=== PATIENT | female | born 1960 ===

== ENCOUNTER 2018-08-08 16:25 | Observation (INO) | payer MEDICAID ==
[2018-08-08] MEDS ORDERED: Sodium Chloride 0.9% 1,000 ML IV SCH (16:45)
--- NOTE | 2018-08-08 16:49 | ED PDOC ---
HPI:STROKE - Time Time: 16:44 - Historian Historian: Patient, Family - Chief Complaint Chief Complaint: Numbness - Onset Date: 08/07/18 Time: 10:00 - Timing Timing: Currently Symptomatic - TPA Positive for Contraindication: Yes Reason tPA is not being Administered: out of window and nih 0 - Notes: Notes:: Pt. with left arm and leg numbness. Also numbness to left side of her lips. No tongue or rest of the face issues. No vision changes, dizziness, neck pain, weakness. No chest pain, dyspnea, abd pain, nausea, vomit. Has headache to the right back of the head, mild, not the worst of her life. Symptoms present when she woke up. Yesterday evening pt. had no issues. NIHSS Stroke Scale - Date/Time Evaluation Performed Date Performed: 08/08/18 Time Performed: 16:45 When Was NIHSS Performed: Baseline - How Severe is the Stroke Level of Consciousness: 0=Alert LOC to Questions: 0=Both comments correct LOC to commands: 0=Obeys both correctly Best Gaze: 0=Normal Visual: 0=No visual loss Facial: 0=Normal Motor Arm - Left: 0=No drift Motor Arm - Right: 0=No drift Motor Leg - Left: 0=No drift Motor Leg - Right: 0=No drift Limb Ataxia: 0=Absent Sensory: 0=Normal Best Language: 0=No aphasia Dysarthia: 0=Normal articulation Extinction & Inattention (Neglect): 0=Normal, no object Score: 0 rTPA Inclusion/Exclusion - Refusal of Treatment Patient Refused Treatment: No - Inclusion Criteria for Altepase Patient is 18 years or Older: Yes The Clinical Diagnosis of Ischemic Stroke That is Causing a Potentially Disabling Neurological Deficit: No Time of Onset is Well Established to be Less Than 270 Minute Before Treatment Would Begin: No Risk/Benefit Discussed With Patient/Family Member Present: No Past Medical History Reviewed: Nursing Documentation, Vital Signs Vital Signs: Last Vital Signs Temp 97.8 F 08/08/18 16:35 Pulse 86 08/08/18 16:35 Resp 18 08/08/18 16:35 BP 160/78 H 08/08/18 16:35 Pulse Ox 100 08/08/18 16:35 - Medical History PMH: No Chronic Diseases - Surgical History Surgical History: Appendectomy - Family History Family History: States: Unknown Family Hx - Home Medications Home Medications: Ambulatory Orders Medication Instructions Recorded Cyclobenzaprine [Cyclobenzaprine 10 mg PO TID PRN #15 tab 05/22/17 HCl] Ibuprofen [Motrin Tab] 400 mg PO TID PRN #30 tab 05/22/17 - Allergies Allergies/Adverse Reactions: Allergies Allergy/AdvReac Type Severity Reaction Status Date / Time No Known Allergies Allergy Verified 08/08/18 16:35 Review of Systems ROS Statement: Except As Marked, All Systems Reviewed And Found Negative Neurological: Positive for: Numbness Physical Exam - Reviewed Nursing Documentation Reviewed: Yes Vital Signs Reviewed: Yes - Physical Exam Appears: Positive for: Non-toxic, No Acute Distress Head Exam: Positive for: ATRAUMATIC, NORMAL INSPECTION, NORMOCEPHALIC Skin: Positive for: Normal Color, Warm, DRY Eye Exam: Positive for: EOMI, Normal appearance, PERRL ENT: Positive for: Normal ENT Inspection Neck: Positive for: Normal, Painless ROM Cardiovascular/Chest: Positive for: Regular Rate, Rhythm Respiratory: Positive for: CNT, Normal Breath Sounds Gastrointestinal/Abdominal: Positive for: Normal Exam, Soft. Negative for: Tenderness Back: Positive for: Normal Inspection. Negative for: L CVA Tenderness, R CVA Tenderness Extremity: Positive for: Normal ROM. Negative for: Tenderness, Pedal Edema Neurologic/Psych: Positive for: Alert, loan coordinator II-XII, Oriented. Negative for: Motor/Sensory Deficits, Facial Droop - Laboratory Results Result Diagrams: 08/08/18 17:00 08/08/18 17:00 Interpretation Of Abn Labs: no acute - ECG O2 Sat by Pulse Oximetry: 100 - Radiology X-Ray: Read By Radiologist X-Ray Interpretation: No Acute Disease - CT Scan/US ct Other Rad Studies (CT/US): Read By Radiologist Other Rad Interpretation: no acute - Progress ED Course And Treament: 749: Pt. stable. Symptoms gone. Spoke with Dr. Seman. Ravin quintero for further evaluation. Disposition - Clinical Impression Clinical Impression: Paresthesia - Patient ED Disposition Is Patient to be Admitted: Yes Counseled Patient/Family Regarding: Studies Performed, Diagnosis - Disposition Disposition Time: 19:50 Condition: FAIR - Pt Status Changed To: Hospital Disposition Of: Observation - POA Present On Arrival: None
--- NOTE | 2018-08-08 16:59 | CT ---
Date of service: 08/08/2018 PROCEDURE: CT HEAD WITHOUT CONTRAST. HISTORY: code stroke COMPARISON: None available. TECHNIQUE: Axial computed tomography images were obtained through the head/brain without intravenous contrast. Radiation dose: Total exam DLP = 761.56 mGy-cm. This CT exam was performed using one or more of the following dose reduction techniques: Automated exposure control, adjustment of the mA and/or kV according to patient size, and/or use of iterative reconstruction technique. FINDINGS: HEMORRHAGE: No intracranial hemorrhage. BRAIN: No mass effect or edema. No atrophy or chronic microvascular ischemic changes. VENTRICLES: Unremarkable. No hydrocephalus. CALVARIUM: Unremarkable. PARANASAL SINUSES: Mucosal thickening noted in the left ethmoid sinuses. MASTOID AIR CELLS: Unremarkable as visualized. No inflammatory changes. OTHER FINDINGS: None. IMPRESSION: No evidence of acute intracranial hemorrhage mass effect or midline shift. No CT evidence of acute territorial infarction.
[2018-08-08 17:14] LABS: BASO % 0.6 % (0.0-2.0); EOS % 0.5 % (0.0-4.0); HEMOGLOBIN 14.4 g/dL (12.0-16.0); LYMPH # 2.7 K/uL (1.0-4.3); LYMPH % 39.4 % (20.0-40.0); MEAN CELL VOLUME 88.1 fl (81.0-99.0); MEAN CORPUSCULAR HEMOGLOBIN 30.9 pg (27.0-31.0); MEAN CORPUSCULAR HGB CONC 35.1 g/dL (33.0-37.0); MEAN PLATELET VOLUME 7.8 fl (7.2-11.7); MONO # 0.5 K/uL (0.0-0.8); MONO % 6.6 % (0.0-10.0); NEUT # 3.7 K/uL (1.8-7.0); NEUT % 52.9 % (50.0-75.0); RBC 4.67 Mil/uL (3.80-5.20); RED CELL DISTRIBUTION WIDTH 12.4 % (11.5-14.5); WHITE BLOOD COUNT 6.9 K/uL (4.8-10.8)
[2018-08-08 17:19] LABS: PROTHROMBIN TIME 10.9 Seconds (9.8-13.1)
[2018-08-08 17:22] LABS: PARTIAL THROMBOPLASTIN TIME 28.3 Seconds (25.6-37.1)
[2018-08-08 17:29] LABS: ALB/GLOB RATIO 1.2 (1.0-2.1); ALBUMIN 4.8 g/dL (3.5-5.0); ALT/SGPT 49 U/L (9-52); AST/SGOT 33 U/L (14-36); BLOOD UREA NITROGEN 13 mg/dl (7-17); CALCIUM 10.1 mg/dL (8.4-10.2); GFR NON-AFRICAN AMERICAN > 60; HDL CHOLESTEROL 51 MG/DL (30-70)
[2018-08-08 17:39] LABS: LDL CHOLESTEROL 174 mg/dL (0-129)
--- NOTE | 2018-08-08 17:51 | RAD ---
Date of service: 08/08/2018 HISTORY: Code Stroke COMPARISON: No prior. FINDINGS: LUNGS: No active pulmonary disease. PLEURA: No significant pleural effusion identified, no pneumothorax apparent. CARDIOVASCULAR: No atherosclerotic calcification present No radiographic findings to suggest acute or significant cardiovascular disease. OSSEOUS STRUCTURES: No significant abnormalities. VISUALIZED UPPER ABDOMEN: Normal. OTHER FINDINGS: None. IMPRESSION: No active disease.
[2018-08-09 04:36] VITALS: O2SAT 100
[2018-08-09 07:18] LABS: HEMOGLOBIN 13.4 g/dL (12.0-16.0); MEAN CELL VOLUME 88.3 fl (81.0-99.0); MEAN CORPUSCULAR HEMOGLOBIN 30.6 pg (27.0-31.0); MEAN CORPUSCULAR HGB CONC 34.7 g/dL (33.0-37.0); RBC 4.38 Mil/uL (3.80-5.20); RED CELL DISTRIBUTION WIDTH 12.5 % (11.5-14.5); WHITE BLOOD COUNT 5.9 K/uL (4.8-10.8)
--- NOTE | 2018-08-09 07:36 | CP.PCM.HP ---
Past Patient History - Past Medical History & Family History Past Medical History?: Yes - Past Social History Smoking Status: Never Smoked - CARDIAC Hx Cardiac Disorders: No - PULMONARY Hx Respiratory Disorders: No - NEUROLOGICAL Hx Neurological Disorder: No - HEENT Hx HEENT Problems: No - RENAL Hx Chronic Kidney Disease: No - ENDOCRINE/METABOLIC Hx Endocrine Disorders: No - HEMATOLOGICAL/ONCOLOGICAL Hx Blood Disorders: No - INTEGUMENTARY Hx Dermatological Problems: No - MUSCULOSKELETAL/RHEUMATOLOGICAL Hx Musculoskeletal Disorders: No Hx Falls: No - GASTROINTESTINAL Hx Gastrointestinal Disorders: No - GENITOURINARY/GYNECOLOGICAL Hx Genitourinary Disorders: No - PSYCHIATRIC Hx Psychophysiologic Disorder: No Hx Substance Use: No - SURGICAL HISTORY Hx Appendectomy: Yes - ANESTHESIA Hx Anesthesia: Yes Hx Anesthesia Reactions: No Meds Allergies/Adverse Reactions: Allergies Allergy/AdvReac Type Severity Reaction Status Date / Time No Known Allergies Allergy Verified 08/08/18 16:35 Results - Vital Signs Recent Vital Signs: Last Vital Signs Temp 98.7 F 08/09/18 04:36 Pulse 70 08/09/18 04:36 Resp 18 08/09/18 04:36 BP 104/65 08/09/18 04:36 Pulse Ox 100 08/09/18 04:36 - Labs Result Diagrams: 08/09/18 05:40 08/08/18 17:00 Labs: Laboratory Results - last 24 hr 08/08/18 08/08/18 08/08/18 16:41 17:00 17:00 WBC 6.9 D RBC 4.67 Hgb 14.4 Hct 41.1 MCV 88.1 MCH 30.9 MCHC 35.1 RDW 12.4 Plt Count 225 MPV 7.8 Neut % (Auto) 52.9 Lymph % (Auto) 39.4 Pratt % (Auto) 6.6 Eos % (Auto) 0.5 Baso % (Auto) 0.6 Neut # (Auto) 3.7 Lymph # (Auto) 2.7 Pratt # (Auto) 0.5 Eos # (Auto) 0.0 Baso # (Auto) 0.0 PT INR APTT Sodium 141 Potassium 4.0 Chloride 105 Carbon Dioxide 24 Anion Gap 16 BUN 13 Creatinine 0.8 Est GFR ( Amer) > 60 Est GFR (Non-Af Amer) > 60 POC Glucose (mg/dL) 118 H Random Glucose 119 H Calcium 10.1 Total Bilirubin 0.9 AST 33 ALT 49 Alkaline Phosphatase 84 Troponin I < 0.0120 Total Protein 8.7 H Albumin 4.8 Globulin 3.9 Albumin/Globulin Ratio 1.2 Triglycerides 183 H Cholesterol 257 H LDL Cholesterol Direct 174 H HDL Cholesterol 51 Blood Type Antibody Screen BBK History Checked 08/08/18 08/08/18 08/09/18 17:00 17:00 05:40 WBC 5.9 RBC 4.38 Hgb 13.4 Hct 38.7 MCV 88.3 MCH 30.6 MCHC 34.7 RDW 12.5 Plt Count 217 MPV Neut % (Auto) Lymph % (Auto) Pratt % (Auto) Eos % (Auto) Baso % (Auto) Neut # (Auto) Lymph # (Auto) Pratt # (Auto) Eos # (Auto) Baso # (Auto) PT 10.9 INR 1.0 APTT 28.3 Sodium Potassium Chloride Carbon Dioxide Anion Gap BUN Creatinine Est GFR ( Amer) Est GFR (Non-Af Amer) POC Glucose (mg/dL) Random Glucose Calcium Total Bilirubin AST ALT Alkaline Phosphatase Troponin I Total Protein Albumin Globulin Albumin/Globulin Ratio Triglycerides Cholesterol LDL Cholesterol Direct HDL Cholesterol Blood Type B POSITIVE Antibody Screen Negative BBK History Checked No verified bt
[2018-08-09 07:44] LABS: BLOOD UREA NITROGEN 13 mg/dl (7-17); CALCIUM 9.2 mg/dL (8.4-10.2); GFR NON-AFRICAN AMERICAN > 60
[2018-08-09] MEDS ORDERED: Enoxaparin 40 mg Syringe SC SCH (09:00)
--- NOTE | 2018-08-09 13:41 | MRI ---
Date of service: 08/09/2018 PROCEDURE: MRI BRAIN WITHOUT CONTRAST HISTORY: Paresthesia COMPARISON: Noncontrast head CT from 08/08/2018. TECHNIQUE: Multiplanar, multisequence MR images of the brain were obtained without intravenous contrast enhancement. FINDINGS: HEMORRHAGE: None DWI: No evidence of an acute or early subacute infarction. BRAIN PARENCHYMA: Harvey-white matter differentiation is preserved. There is no mass, mass effect or abnormal extra-axial fluid collection. There is no territorial infarction. The midline sagittal structures are normal. VENTRICLES: There is mild age-related global parenchymal volume loss and proportionate enlargement of the ventricles and cortical sulci. CRANIUM: There is normal bone marrow signal pattern. ORBITS: Grossly unremarkable. PARANASAL SINUSES/MASTOIDS: There is moderate mucosal thickening in the left posterior ethmoid air cells. The remaining included paranasal sinuses are clear. The mastoid air cells are clear. VASCULAR SYSTEM: There are normal signal voids in the larger intracranial arteries. OTHER FINDINGS: None. IMPRESSION: No acute intracranial abnormality.
[2018-08-09 15:52] VITALS: BP 108/70; PULSE 91; RESP 17; TEMP 98.3
--- NOTE | 2018-08-09 17:04 | CARD ---
APPROVED REPORT Date of service: 08/09/2018 EXAM: Two-dimensional and M-mode echocardiogram with Doppler and color Doppler. Other Information Quality : GoodRhythm : NSR INDICATION Parasthesis 2D DIMENSIONS IVSd0.83 (0.7-1.1cm)LVDd3.58 (3.9-5.9cm) LVOT Diameter1.97 (1.8-2.4cm)PWd0.82 (0.7-1.1cm) IVSs1.04 (0.8-1.2cm)LVDs2.44 (2.5-4.0cm) FS (%) 31.7 %PWs1.16 (0.8-1.2cm) M-Mode DIMENSIONS Left Atrium (MM)2.22 (2.5-4.0cm)IVSd0.84 (0.7-1.1cm) Aortic Root2.65 (2.2-3.7cm)LVDd4.35 (4.0-5.6cm) Aortic Cusp Exc.1.94 (1.5-2.0cm)PWd0.84 (0.7-1.1cm) IVSs1.31 cmFS (%) 54 % LVDs1.98 (2.0-3.8cm)PWs1.15 cm Aortic Valve AoV Peak Czfiytvp733.2cm/sAoV VTI21.1cmAO Peak GR.5mmHg LVOT Peak Vnhnqcwx65.5cm/sLVOT VTI18.76cmAO Mean GR.3mmHg EVA (VMAX)1.04et4HXA (VTI)1.71cm2 Mitral Valve MV E Fsoyveur37.3cm/sMV DECEL [id number] A Mgyjmaan20.0cm/s MV OFG53csC/A ratio1.0MVA (PHT)4.91cm2 TDI Lateral E' Peak V13.61cm/sMedial E' Peak V8.72cm/sE/Lateral E'5.2 E/Medial E'8.2 Pulmonary Valve PV Peak Ieezksgt15.6cm/s LEFT VENTRICLE The left ventricle is normal size. There is normal left ventricular wall thickness. The left ventricular systolic function is normal. The estimated ejection fraction is 60-65% No regional wall motion abnormalities noted.. Transmitral Doppler flow pattern is Grade I-abnormal relaxation pattern. No left ventricle thrombus noted on this study. There is no ventricular septal defect visualized. There is no left ventricular aneurysm. There is no mass noted in the left ventricle. RIGHT VENTRICLE The right ventricle is normal size. There is normal right ventricular wall thickness. The right ventricular systolic function is normal. ATRIA The left atrium size is normal. The right atrium size is normal. The interatrial septum is intact with no evidence for an atrial septal defect. AORTIC VALVE The aortic valve is normal in structure. No aortic regurgitation is present. There is no aortic valvular stenosis. There is no aortic valvular vegetation. MITRAL VALVE The mitral valve is normal in structure. There is no evidence of mitral valve prolapse. There is no mitral valve stenosis. There is no mitral valve regurgitation noted. TRICUSPID VALVE The tricuspid valve is normal in structure. There is trace tricuspid valve regurgitation noted. There is no tricuspid valve prolapse or vegetation. There is no tricuspid valve stenosis. PULMONIC VALVE The pulmonary valve is normal in structure. There is no pulmonic valvular regurgitation. There is no pulmonic valvular stenosis. GREAT VESSELS The aortic root is normal in size. The ascending aorta is normal in size. The pulmonary artery is normal. The IVC is normal in size and collapses >50% with inspiration. PERICARDIAL EFFUSION There is no pericardial effusion. There is no pleural effusion. <Conclusion> The estimated ejection fraction is 60-65% Transmitral Doppler flow pattern is Grade I-abnormal relaxation pattern. The left atrium size is normal. There is trace tricuspid valve regurgitation noted. The interatrial septum is intact with no evidence for an atrial septal defect.
--- NOTE | 2018-08-09 19:44 | CP.PCM.CON ---
History of Present Illness - History of Present Illness History of Present Illness: Neurology consult dictated. Patient is not a tpa candidate as she appears to have not had a tia or stroke. NIH stroke scale 0 now. plan; 1. patient may be discharged home Thank you Dr. nino Past Patient History - Past Medical History & Family History Past Medical History?: Yes - Past Social History Smoking Status: Never Smoked - CARDIAC Hx Cardiac Disorders: No - PULMONARY Hx Respiratory Disorders: No - NEUROLOGICAL Hx Neurological Disorder: No - HEENT Hx HEENT Problems: No - RENAL Hx Chronic Kidney Disease: No - ENDOCRINE/METABOLIC Hx Endocrine Disorders: No - HEMATOLOGICAL/ONCOLOGICAL Hx Blood Disorders: No - INTEGUMENTARY Hx Dermatological Problems: No - MUSCULOSKELETAL/RHEUMATOLOGICAL Hx Musculoskeletal Disorders: No Hx Falls: No - GASTROINTESTINAL Hx Gastrointestinal Disorders: No - GENITOURINARY/GYNECOLOGICAL Hx Genitourinary Disorders: No - PSYCHIATRIC Hx Psychophysiologic Disorder: No Hx Substance Use: No - SURGICAL HISTORY Hx Appendectomy: Yes - ANESTHESIA Hx Anesthesia: Yes Hx Anesthesia Reactions: No Meds Home Medications: Home Medication List Medication Instructions Recorded Confirmed Type Aspirin [Ecotrin] 81 mg PO DAILY 30 Days tabec 08/09/18 Rx Atorvastatin [Lipitor] 40 mg PO HS #30 tab 08/09/18 Rx Cyanocobalamin [Vitamin B12 1000 1,000 mcg PO DAILY #30 tab 08/09/18 Rx mcg Tab] Allergies/Adverse Reactions: Allergies Allergy/AdvReac Type Severity Reaction Status Date / Time No Known Allergies Allergy Verified 08/08/18 16:35 Results - Vital Signs Recent Vital Signs: Last Vital Signs Temp 98.3 F 08/09/18 15:52 Pulse 91 H 08/09/18 15:52 Resp 17 08/09/18 15:52 BP 108/70 08/09/18 15:52 Pulse Ox 100 08/09/18 15:52 - Labs Result Diagrams: 08/09/18 05:40 08/09/18 05:40 Labs: Laboratory Results - last 24 hr 08/08/18 08/09/18 08/09/18 19:28 05:40 05:40 WBC 5.9 RBC 4.38 Hgb 13.4 Hct 38.7 MCV 88.3 MCH 30.6 MCHC 34.7 RDW 12.5 Plt Count 217 Sodium 141 Potassium 4.2 Chloride 112 H Carbon Dioxide 23 Anion Gap 10 BUN 13 Creatinine 0.7 Est GFR ( Amer) > 60 Est GFR (Non-Af Amer) > 60 Random Glucose 88 Hemoglobin A1c 5.4 Calcium 9.2 Vitamin B12 319 TSH 3rd Generation 2.46
--- NOTE | 2018-08-10 14:03 | CARD ---
APPROVED REPORT Date of service: 08/08/2018 EKG Measurement Heart [id number] <Conclusion> Normal sinus rhythm Incomplete right bundle branch block Borderline ECG
--- NOTE | 2018-08-11 07:19 | CP.PCM.DIS ---
Provider - Provider Date of Admission: 08/08/18 19:44 Attending physician: Deon Cat MD Time Spent in preparation of Discharge (in minutes): 25 Hospital Course - Lab Results Lab Results: Most Recent Lab Values WBC 5.9 K/uL (4.8-10.8) 08/09/18 05:40 RBC 4.38 Mil/uL (3.80-5.20) 08/09/18 05:40 Hgb 13.4 g/dL (12.0-16.0) 08/09/18 05:40 Hct 38.7 % (34.0-47.0) 08/09/18 05:40 MCV 88.3 fl (81.0-99.0) 08/09/18 05:40 MCH 30.6 pg (27.0-31.0) 08/09/18 05:40 MCHC 34.7 g/dL (33.0-37.0) 08/09/18 05:40 RDW 12.5 % (11.5-14.5) 08/09/18 05:40 Plt Count 217 K/uL (130-400) 08/09/18 05:40 MPV 7.8 fl (7.2-11.7) 08/08/18 17:00 Neut % (Auto) 52.9 % (50.0-75.0) 08/08/18 17:00 Lymph % (Auto) 39.4 % (20.0-40.0) 08/08/18 17:00 [facility] % (Auto) 6.6 % (0.0-10.0) 08/08/18 17:00 Eos % (Auto) 0.5 % (0.0-4.0) 08/08/18 17:00 Baso % (Auto) 0.6 % (0.0-2.0) 08/08/18 17:00 Neut # (Auto) 3.7 K/uL (1.8-7.0) 08/08/18 17:00 Lymph # (Auto) 2.7 K/uL (1.0-4.3) 08/08/18 17:00 [facility] # (Auto) 0.5 K/uL (0.0-0.8) 08/08/18 17:00 Eos # (Auto) 0.0 K/uL (0.0-0.7) 08/08/18 17:00 Baso # (Auto) 0.0 K/uL (0.0-0.2) 08/08/18 17:00 PT 10.9 Seconds (9.8-13.1) 08/08/18 17:00 INR 1.0 08/08/18 17:00 APTT 28.3 Seconds (25.6-37.1) 08/08/18 17:00 Sodium 141 mmol/l (132-148) 08/09/18 05:40 Potassium 4.2 MMOL/L (3.6-5.0) 08/09/18 05:40 Chloride 112 mmol/L (98-107) H 08/09/18 05:40 Carbon Dioxide 23 mmol/L (22-30) 08/09/18 05:40 Anion Gap 10 (10-20) 08/09/18 05:40 BUN 13 mg/dl (7-17) 08/09/18 05:40 Creatinine 0.7 mg/dl (0.7-1.2) 08/09/18 05:40 Est GFR ( Amer) > 60 08/09/18 05:40 Est GFR (Non-Af Amer) > 60 08/09/18 05:40 POC Glucose (mg/dL) 118 mg/dL (65-110) H 08/08/18 16:41 Random Glucose 88 mg/dL (65-105) 08/09/18 05:40 Hemoglobin A1c 5.4 % (4.2-6.5) 08/09/18 05:40 Calcium 9.2 mg/dL (8.4-10.2) 08/09/18 05:40 Total Bilirubin 0.9 mg/dl (0.2-1.3) 08/08/18 17:00 AST 33 U/L (14-36) 08/08/18 17:00 ALT 49 U/L (9-52) 08/08/18 17:00 Alkaline Phosphatase 84 U/L (38-126) 08/08/18 17:00 Troponin I < 0.0120 ng/mL (0.00-0.120) 08/08/18 17:00 Total Protein 8.7 G/DL (6.3-8.2) H 08/08/18 17:00 Albumin 4.8 g/dL (3.5-5.0) 08/08/18 17:00 Globulin 3.9 gm/dL (2.2-3.9) 08/08/18 17:00 Albumin/Globulin Ratio 1.2 (1.0-2.1) 08/08/18 17:00 Triglycerides 183 mg/DL (0-149) H 08/08/18 17:00 Cholesterol 257 mg/dL (0-199) H 08/08/18 17:00 LDL Cholesterol Direct 174 mg/dL (0-129) H 08/08/18 17:00 HDL Cholesterol 51 MG/DL (30-70) 08/08/18 17:00 Vitamin B12 319 pg/mL (239-931) 08/09/18 05:40 TSH 3rd Generation 2.46 mIU/ML (0.46-4.68) 08/09/18 05:40 Blood Type B POSITIVE 08/08/18 17:00 Antibody Screen Negative 08/08/18 17:00 BBK History Checked No verified bt 08/08/18 17:00 Discharge Exam - Head Exam Head Exam: ATRAUMATIC, NORMAL INSPECTION, NORMOCEPHALIC Discharge Plan - Discharge Medications Prescriptions: Aspirin [Ecotrin] 81 mg PO DAILY 30 Days tabec Atorvastatin [Lipitor] 40 mg PO HS #30 tab Cyanocobalamin [Vitamin B12 1000 mcg Tab] 1,000 mcg PO DAILY #30 tab - Follow Up Plan Condition: FAIR Disposition: HOME/ ROUTINE Instructions: Paresthesias (DC) Additional Instructions: follow up with primary doctor within 1 week. return to emergency room for return of symptoms. go to [facility] for prescriptions.
--- NOTE | 2018-08-11 08:39 | CON ---
DATE: 08/09/2018 NEUROLOGY CONSULTATION Consult was called for Dailla Pagan by Dr. Shaw Gallardo HISTORY OF PRESENT ILLNESS: Ms. Pagan is a 58-year-old woman who came in as code stroke to the [facility] earlier today with left hand and leg numbness, numbness to the left side of her lip. She denied aphasia, weakness, nausea, ataxia. She also had a mild headache to right side of the head. She woke up with these symptoms and fell asleep with no issues. , and up on my examination, the patient had no symptoms, whatsoever. She denies prior incident. She denies any weakness at the moment. Denies any visual field cut. She is not a CTA candidate because of her resolving deficits and the . PAST MEDICAL HISTORY: No known chronic illnesses. PAST SURGICAL HISTORY: Appendectomy. FAMILY AND SOCIAL HISTORY: Currently unemployed. No tobacco, no alcohol. PHYSICAL EXAMINATION: NEUROLOGIC: The neurologic exam is completely normal. There were no focal findings. LABORATORY DATA: Labs are as follows: White count 6.9, hemoglobin 14.4, hematocrit 41.1, platelets 225. Sodium 141, potassium 4, BUN 13, creatinine 0.8, glucose 119. CAT scan of the head was normal. Brain MRI was normal as well with no stroke or infarct. The patient is admitted to telemetry. Labs are within normal limits as well except for triglycerides which was 183, cholesterol 237, LDL 174. IMPRESSION AND PLAN: This is a 58-year-old woman who did not have any transient ischemic attack or any ischemic event. At this point, there is no stroke prevention needed except for due to abnormal triglycerides and cholesterol. No further stroke workup is needed. Thank you for consulting Neurology. Please re-consult genet Louise Downs MD
== END 2018-08-09 17:18 | disposition home or self-care (01) ==
LOC: H.ER 16:25 → H.ERHOLD 19:44 → H.TEL 20:32
PROVIDERS: ADMIT Internal Medicine; ATTEND Internal Medicine
DX: R20.2 Paresthesia of skin (principal); Z79.82 Long term (current) use of aspirin; Z90.49 Acquired absence of other specified parts of digestive tract; E78.9 Disorder of lipoprotein metabolism, unspecified
CPT/HCPCS: 36415; 70450; 70551; 71045; 80048; 80053; 80061; 82607; 82948; 83036; 84443; 84484; 85025; 85027; 85610; 85730; 86850; 86900; 93005; 93306; 97161; 99285; G0378; G8978; G8979; G8980; J1650; J2060; J7030